=== PATIENT | female | born 1980 ===

== ENCOUNTER 2017-09-20 01:33 | Day surgery (SDC) | payer OTHER ==
--- NOTE | 2017-09-19 20:29 | HISTORY AND PHYSICAL ---
DATE OF ADMISSION: September 20, 2017 CHIEF COMPLAINT Undesired fertility. HISTORY OF PRESENT ILLNESS The patient is a 37-year-old, 2, who desires permanent contraception. No longer desires her fertility. We had discussion of risks versus benefits of alternative methods as well as laparoscopic bilateral tubal ligation. Patient desires to proceed with laparoscopic bilateral tubal ligation. MEDICATIONS * Levothyroxine 100 mcg daily. ALLERGIES SULFA, she gets chest tightness. REVIEW OF SYSTEMS GENITOURINARY: Per HPI. GENERAL, SKIN, EYES, EARS, NOSE, MOUTH, NECK, RESPIRATORY, CARDIOVASCULAR, GASTROINTESTINAL, NEUROLOGIC, PSYCHIATRIC: All reviewed and noncontributory. PAST MEDICAL HISTORY * HPV. * Hypothyroidism. * Two vaginal deliveries. PAST SURGICAL HISTORY * 2006, a cholecystectomy. FAMILY HISTORY Maternal grandmother with hypertension and breast cancer. SOCIAL HISTORY She does not drink alcohol. She is a nonsmoker. No illicit drug use. She is a benefits administrator as an occupation. PHYSICAL EXAMINATION VITAL SIGNS: BP 132/84, temp 99. Weight 188, height 62.75 with a BMI of 33.65. CONSTITUTIONAL: Well-nourished, well-developed female in no distress. SKIN: Without rash or lesion. NECK: Supple, without masses. HEART: Regular rate and rhythm. LUNGS: Clear to auscultation bilaterally. ABDOMEN: Soft, nontender, nondistended. Bowel sounds positive. EXTREMITIES: Nontender. No edema. PSYCHIATRIC: Alert and oriented times three. Normal mood and affect. PELVIC: Normal external female genitalia. Well estrogenized vaginal lining. No abnormal discharge or lesions. Cervix normal appearance. Uterus 6 x 5 cm. No adnexal masses or tenderness. ASSESSMENT AND PLAN Undesired fertility, desire for permanent sterilization. Plan to perform laparoscopic bilateral tubal ligation. [facility]
[~2017-09-20] VITALS: Ht 160 cm; Wt 83.5 kg
[~2017-09-20 01:33] MED LIST: DAR100 PO; FAMOTIDINE 20 MG TAB PO ONE; LEVO-3 PO; LEVO1TAB30 PO
[2017-09-20] MEDS ORDERED: FAMOTIDINE 20 MG TAB PO ONE (06:15)
--- NOTE | 2017-09-20 08:25 | Post Operative Note ---
Operative Note - [facility] Operative Day Date: Sep 20, 2017 Time: 10:00 Physicians Surgeon: TSERING Anesthesia: HANANE Diagnosis Pre-Op Diagnosis: UNDESIRED FERTILITY Post-Op Diagnosis: SAME Procedure Findings: UT 6X5 NO ADNEXAL MASS [id number] Procedure(s): LSCOPE BTL Complications: 0 Fluids Fluids: 1300 CC NR IV Estimated Blood Loss: MINIMAL Dictated Date OP Note Dictated: Sep 20, 2017 Time OP Note Dictated: 10:15 Copies to: CHARIS CAGLE MD, JOHN MD Sep 20, 2017 08:25
[2017-09-20] MEDS ORDERED: FAMOTIDINE 20 MG/50 ML PREMIX IVPB ONE (08:35)
[2017-09-20 08:45] VITALS: BP 129/80
[2017-09-20] MEDS ORDERED: cefOXitin/DEX(*) 2GM/50ML PREM 50 ML IVPB ONE (08:50)
[2017-09-20] MEDS ORDERED: NORMOSOL R SOLN(*) 1000 ML BAG 1,000 ML IV PRN (08:50)
[2017-09-20] MEDS ORDERED: LIDOCAINE/SOD BICARB 8.4% SYR ID ONE (08:50)
[2017-09-20] MEDS ORDERED: MIDAZOLAM 2 MG/2 ML VIAL IVP PRN (08:50)
[2017-09-20] MEDS ORDERED: HYDROmorphone HCL 2 MG TAB PO ONE (08:55)
[2017-09-20] MEDS ORDERED: IBUP800T37 PO (09:02)
[2017-09-20] MEDS ORDERED: HYDR2TAB4 PO (09:02)
[2017-09-20 09:04] LABS: PLATELET COUNT, AUTOMATED 234 K/uL (150-450)
--- NOTE | 2017-09-20 09:05 | OB/GYN Discharge Summary ---
Discharge Summary Reason for Hosp/Final Diag: (1) Status post laparoscopic procedure Hospital Course & Plan: LSCOPE BTL PERFORMED, NO COMPLICATIONS TOLERATED WELL Weight (Pounds): 180 Condition: Improved Discharge: Home, Self [facility] Meds Active Scripts Ibuprofen (IBUPROFEN) 800 Mg Tablet, 1 TAB PO Q8H, #30 TAB 0 Refills Take with food every 8 hours. Prov:CHARIS HAMMOND MD 09/20/17 Hydromorphone Hcl (HYDROMORPHONE HCL) 2 Mg Tablet, 2 MG PO Q4H for PAIN, #20 TAB 0 Refills Prov:CHARIS HAMMOND MD 09/20/17 Reported Medications Levonorgestrel-Eth Estradiol (ELIAS) 1 Each Tablet, 1 EACH PO DAILY 09/16/17 Levothyroxine Sodium (LEVOTHYROXINE SODIUM) 100 Mcg Tablet, 100 MCG PO QDAY, TAB 09/16/17 Discontinued Reported Medications Propoxyphene-N/Acetaminophen (Darvocet N-100) 1 Ea Tab, 0 PO Q3-4H 1-2 TABS WITH FOOD NEEDED FOR PAIN 06/28/06 Follow up with: Dr. Hammond [phone] Follow up in: 2 wks PO Discharge Diet: As Tolerates Discharge Activity: Pelvic Rest Copies to: CHARIS HAMMOND MD, JOHN MD Sep 20, 2017 09:05
[2017-09-20] MEDS ORDERED: ROPIVACAINE 0.2% 20 ML VIAL ONE (09:13)
[2017-09-20] MEDS ORDERED: MIDAZOLAM 2 MG/2 ML VIAL ONE (09:23)
[2017-09-20] MEDS ORDERED: fentaNYL CITR 100 MCG/2 ML AMP ONE ×2 (09:24→10:42)
[2017-09-20] MEDS ORDERED: ROCURONIUM BROM 10 MG/ML 10 ML ONE (09:27)
[2017-09-20] MEDS ORDERED: PROPOFOL EMUL(*) 10MG/ML 20 ML 20 ML ONE (09:27)
[2017-09-20] MEDS ORDERED: DEXAMETHASONE SOD PHOS 10MG/ML ONE (09:27)
[2017-09-20] MEDS ORDERED: ONDANSETRON 4 MG/2 ML VIAL ONE (09:27)
[2017-09-20] MEDS ORDERED: SUGAMMADEX SOD 500 MG/5 ML SDV ONE (09:59)
[2017-09-20] MEDS ORDERED: LR(*) 1000 ML BAG 1,000 ML IV ONE (10:12)
[2017-09-20] MEDS ORDERED: METOCLOPRAMIDE 10 MG/2 ML SDV IVP PRN (10:15)
[2017-09-20] MEDS ORDERED: HYDROmorphone HCL 2 MG TAB PO PRN (10:15)
[2017-09-20] MEDS ORDERED: KETOROLAC 30 MG/ML VIAL ONE (10:22)
[2017-09-20] MEDS ORDERED: PROMETHAZINE 25 MG/ML 1 ML AMP ONE (10:45)
[2017-09-20 11:16] VITALS: BP 98/67
[2017-09-20 11:20] VITALS: BP 103/57
[2017-09-20 11:22] VITALS: BP 100/64
--- NOTE | 2017-09-20 11:39 | OPERATIVE REPORT 1 ---
EVENT DATE: September 20, 2017 SURGEON: Khoi Hammond MD ANESTHESIOLOGIST: Ricco Yarbrough MD ANESTHESIA: General PREOPERATIVE DIAGNOSIS Undesired fertility POSTOPERATIVE DIAGNOSIS Undesired fertility PROCEDURE Laparoscopic bilateral tubal ligation vial Falope-Ring Applicator COMPLICATIONS None FLUIDS 1300 cc of Normosol IV. ESTIMATED BLOOD LOSS Minimal. INDICATIONS The patient is a 37-year-old multiparous female with undesired fertility. After discussion of risks and alternatives, desired to proceed with laparoscopic bilateral tubal ligation. FINDINGS Uterus 6 x 5 cm, no adnexal masses. DESCRIPTION OF PROCEDURE After informed consent was obtained the patient was taken to the operating room with the IV running, placed in a supine position where general anesthesia was obtained without difficulty. She was then placed in the [facility], examined under anesthesia with the above findings. She was prepped and draped in the usual fashion. The bladder was drained. A side out speculum was placed into the vagina. The anterior lip of the cervix was grasped with an Allis clamp. The uterus sounded to 8 cm. # 8 Frieda uterine manipulator was advanced into the uterine cavity to provide a means to manipulate the uterus. The remainder of the instruments were removed from the vagina. Legs were lowered. Attention then turned to the abdomen. 0.2 Naropin was infiltrated into the umbilicus. Skin incision was made with the scalpel. Veress needle was advanced into the abdominal cavity. Normal CO2 filling pressures were noted after adequate insufflation. A 5 mm bladeless trocar was advanced under laparoscopic guidance. Intraabdominal placement was confirmed by laparoscopy. An 8 mm bladeless trocar was then prepped for suprapubic position after 0.2 Naropin was infiltrated in the skin. The scalpel used to create a skin incision and then advancing the 8 mm bladeless trocar under direct visualization. The Falope-Ring applicator was then advanced into the abdomen. No injuries were noted with entry into the abdomen. Normal abdominal contents and pelvic contents were noted. The left tube was identified, Falope-Ring applied. Attention was then turned to the right tube, where the right tube was grasped in the mid portion, knuckled and the Falope-Ring applied. The Falope- Ringer applicator was then removed. No bleeding or abnormalities were noted. The gas was allowed to escape from the abdomen. The patient was taken out of Trendelenburg positioning. All instruments were removed from the abdominal cavity. The skin was closed with 4/0 Monocryl and Dermabond. The Frieda was removed from the vagina. The patient was taken out of the [facility], awakened from anesthesia and taken to the recovery room in stable condition. TIFFANIE
[2017-09-20] MEDS ORDERED: IBUPROFEN 800 MG TAB PO SCH (17:00)
== END 2017-09-20 11:16 | disposition home or self-care (01) ==
LOC: OR 01:33
PROVIDERS: ATTEND Obstetrics & Gynecology
DX: Z30.2 Encounter for sterilization (principal); E03.9 Hypothyroidism, unspecified
CPT/HCPCS: 36415; 58671; 84443; 84703; 85025; J0694; J1100; J1885; J2250; J2405; J2550; J2704; J2795; J3010; J3490

== ENCOUNTER → 2018-08-08 | Outpatient (CLI) | payer OTHER ==
[~2018-08-08] MED LIST changes: -FAMOTIDINE 20 MG TAB PO ONE; +HYDR2TAB4 PO; +IBUP800T37 PO
--- NOTE | 2018-08-11 13:49 | RADIOLOGY IMAGING REPORT ---
FACILITY: [facility] - [place] PATIENT NAME: ANETTE LOTT : [id number] MR: [id number] V: [id number] EXAM DATE: [id number] ORDERING PHYSICIAN: JIHAN LALA TECHNOLOGIST: Niurka Barnes PROCEDURE: BILATERAL DIGITAL SCREENING MAMMOGRAM WITH CAD ASSISTED INTERPRETATION & 3D TOMOSYNTHESIS REASON FOR STUDY: Screening. COMPARISON: None. VIEWS OBTAINED: 2D & 3D full field CC & MLO. BREAST DENSITY: There are scattered areas of fibroglandular density. MAMMOGRAM FINDINGS: In the Right breast there is an asymmetry, in the middle 1/3 for depth seen only on the CC view. This is just lateral to the retroareolar line. The asymmetry measures 7mm, and has a smooth well circumscribed borders. The Left breast demonstrates no suspicious mass, calcification, or architectural distortion. IMPRESSION: BIRADS 0: Incomplete. DIAGNOSTIC CATEGORY 0--INCOMPLETE: NEED ADDITIONAL IMAGING EVALUATION. RECOMMENDATIONS: ADDITIONAL MAMMOGRAPHIC VIEWS REQUIRED: RIGHT BREAST. RIGHT BREAST CC SPOT COMPRESSION, AND TRUE MEDIAL LATERAL VIEW, WELL POSSIBLE RIGHT BREAST ULTRASOUND. Dictated by: Castro Asif M.D. on 08/11/2018 at 9:11 Transcribed by: TREVIN on 08/11/2018 at 10:07 Approved by: Castro Asif M.D. on 08/11/2018 at 13:46 [facility]
== END ==
LOC: MAMO 01:36
PROVIDERS: ATTEND Family Medicine
DX: R92.2 Inconclusive mammogram (principal); Z80.3 Family history of malignant neoplasm of breast
CPT/HCPCS: 77063; 77067

== ENCOUNTER → 2018-08-19 | Outpatient (CLI) | payer OTHER ==
--- NOTE | 2018-08-20 09:21 | RADIOLOGY IMAGING REPORT ---
FACILITY: [facility] - [place] PATIENT NAME: ANETTE LOTT : [id number] MR: [id number] V: [id number] EXAM DATE: ORDERING PHYSICIAN: JIHAN LALA TECHNOLOGIST: Kamilah Hawkins PROCEDURE:RIGHT DIGITAL MAMMOGRAM DIAGNOSTIC WITH CAD ASSISTED INTERPRETATION & 3D TOMOSYNTHESIS. REASON FOR STUDY: Further evaluation. COMPARISON STUDIES: 08/08/18. MAMMOGRAM VIEWS OBTAINED: 2D & 3D full field Right mediolateral lateral view & 2D & 3D Spot compression view in the Right CC projection. MAMMOGRAM FINDINGS: Additional imaging does demonstrate a rounded nodular density in the inferior lateral aspect of the Right breast in the middle depth. ULTRASOUND AREA SCANNED: 6-9 o'clock position of the Right breast. ULTRASOUND FINDINGS: In the 7 o'clock position of the Right breast 2cm from the nipple there is a small cluster of cysts measuring 8 x 6 x 4mm which likely accounts for the nodular density seen on today's mammogram. DIAGNOSTIC CATEGORY 2--BENIGN FINDING. RECOMMENDATIONS: ROUTINE MAMMOGRAM AND CLINICAL EVALUATION. IMPRESSION: BIRADS 2: Benign finding. There is a small cluster of cysts in the 7 o'clock position of the Right breast which accounts for nodular density seen on today's mammogram. Dictated by: Pippa Larson M.D. on 08/19/2018 at 17:43 Transcribed by: TREVIN on 08/20/2018 at 8:21 Approved by: Pippa Larson M.D. on 08/20/2018 at 9:17 [facility]
--- NOTE | 2018-08-20 09:21 | RADIOLOGY IMAGING REPORT ---
FACILITY: [facility] PATIENT NAME: ANETTE LOTT : [id number] MR: [id number] V: [id number] EXAM DATE: [id number] ORDERING PHYSICIAN: JIHAN LALA TECHNOLOGIST: Nelly Harrell RDMS(ABD,OBGYN,BR),RVT PROCEDURE:RIGHT DIGITAL MAMMOGRAM DIAGNOSTIC WITH CAD ASSISTED INTERPRETATION & 3D TOMOSYNTHESIS. REASON FOR STUDY: Further evaluation. COMPARISON STUDIES: 08/08/18. MAMMOGRAM VIEWS OBTAINED: 2D & 3D full field Right mediolateral lateral view & 2D & 3D Spot compression view in the Right CC projection. MAMMOGRAM FINDINGS: Additional imaging does demonstrate a rounded nodular density in the inferior lateral aspect of the Right breast in the middle depth. ULTRASOUND AREA SCANNED: 6-9 o'clock position of the Right breast. ULTRASOUND FINDINGS: In the 7 o'clock position of the Right breast 2cm from the nipple there is a small cluster of cysts measuring 8 x 6 x 4mm which likely accounts for the nodular density seen on today's mammogram. DIAGNOSTIC CATEGORY 2--BENIGN FINDING. RECOMMENDATIONS: ROUTINE MAMMOGRAM AND CLINICAL EVALUATION. IMPRESSION: BIRADS 2: Benign finding. There is a small cluster of cysts in the 7 o'clock position of the Right breast which accounts for nodular density seen on today's mammogram. Dictated by: Pippa Larson M.D. on 08/19/2018 at 17:44 Transcribed by: TREVIN on 08/20/2018 at 8:22 Approved by: Pippa Larson M.D. on 08/20/2018 at 9:17 [facility]
== END ==
LOC: MAMO 00:31
PROVIDERS: ATTEND Family Medicine
DX: N60.01 Solitary cyst of right breast (principal)
CPT/HCPCS: 77061; 77065